=== PATIENT | male | born 1970 | race Caucasian/White ===

== ENCOUNTER 2016-09-13 08:19 | Emergency (ER) | payer MEDICAID, OTHER ==
[~2016-09-13] VITALS: Ht 190.5 cm; Wt 77.1 kg
--- NOTE | 2016-09-13 08:42 | NUR ---
Patient discharged to home in stable conditon. Written and verbal after care instructions given to patient. Patient verbalizes understanding of instructions. Patient left ER with steady gait.
== END 2016-09-13 08:42 | disposition home or self-care (01) ==
LOC: ER 08:19
DX: H66.92 Otitis media, unspecified, left ear (principal)
CPT/HCPCS: A4663; J7030